=== PATIENT | male | born 1960 | race Caucasian/White ===

== ENCOUNTER → 2024-04-10 10:26 | Outpatient (REF) | payer OTHER, SELFPAY | LOC: HWRAD 10:26 | PROVIDERS: ATTENDING PHYSICIAN Family Medicine | DX: M25.561 Pain in right knee (principal) | CPT/HCPCS: 73564 ==

== ENCOUNTER → 2024-06-06 06:40 | Outpatient (REF) | payer OTHER, SELFPAY | LOC: MRI 3T 06:40 | PROVIDERS: ATTENDING PHYSICIAN Student in an Organized Health Care Education/Training Program | DX: M17.11 Unilateral primary osteoarthritis, right knee (principal); M25.561 Pain in right knee | CPT/HCPCS: 73721 ==

== ENCOUNTER 2024-10-15 06:31 | Emergency (ER) | payer OTHER, SELFPAY ==
[2024-10-15] VITALS (28 sets, daily range): BP systolic 131–180; BP diastolic 56–88; BMI 33.5
[2024-10-15 07:24] LABS: % Basophils 0.9 % (0-2); % Eosinophils 2.2 % (0-6); % Immature Granulocytes 0.7 % (0-0.5); % Lymphocytes 17.9 % (20.5-51.1); % Monocytes 11.2 % (1.7-9.3); % Neutrophils 67.1 % (42.2-75.2); Absolute Eosinophils 0.1 10^3/uL (0-0.7); Absolute Lymphocytes 0.8 10^3/uL (1.2-3.4); Absolute Monocytes 0.5 10^3/uL (0.1-0.6); Hematocrit 42.4 % (39.0-52.0); Mean Corp Hgb Conc. 35.4 g/dL (33.0-37.0); Mean Corpuscular Hgb 32.1 pg (27.0-31.0); Mean Corpuscular Volume 90.6 fL (80.0-94.0); Mean Platelet Volume 10.6 fL (7.4-10.4); Nucleated Red Blood Cells % 0 % (-); Platelet Count 116 10^3/uL (130-400); Red Blood Cell Count 4.68 10^6/uL (4.70-6.10); Red Cell Dist. Width 12.2 % (11.5-14.5); White Blood Cell Count 4.5 10^3/uL (4.8-10.8)
[2024-10-15 07:32] LABS: ALT (SGPT) 54 U/L (0-50); AST (SGOT) 69 U/L (17-59); Albumin 4.4 g/dl (3.5-5.0); Alkaline Phosphatase 56 U/L (38-126); Blood Urea Nitrogen 9 mg/dl (9-20); Calcium 8.9 mg/dl (8.4-10.2); Carbon Dioxide 27 mmol/L (22-30); Chloride 96 mmol/L (98-107); Estimated Creatinine Clearance 115 ml/min; Glucose 125 mg/dl (70-99); Potassium 4.2 mmol/L (3.5-5.1); Sodium 132 mmol/L (135-145); Total Bilirubin 1.3 mg/dl (0.2-1.3); Total Protein 7.8 g/dl (6.3-8.2); eGFR > 60.00
--- NOTE | 2024-10-15 07:39 | ED.GENMED ---
History of Present Illness
General
Chief Complaint: Heart Rate Problem
Source: patient, records and spouse
Exam Limitations: none
Time Seen by Provider: 10/15/24 06:45
Nursing documentation reviewed up to this point in time: agreed with
History of Present Illness
History of Present Illness:
Patient is a 64-year-old male who presents to the emergency department after going into atrial fibrillation around 430 this morning. Patient awoke from sleep with it. Patient was fine before bed last night. Patient is not anticoagulated. Patient
has had this previously and required cardioversion. Patient denies fever, chills, nasal congestion, sore throat or cough. Patient denies any chest pain or shortness of breath. Patient does feel palpitations. Patient denies any GI or symptoms.
Patient denies any leg pain or swelling. Patient states he has been drinking more alcohol than usual given the holidays. He believes that might have set him off.
Past History
Past History
ED Past Medical History: Arrthythmia (PAF, 14 years ago, and 03/10), Asthma, HTN, Hypercholesterolemia, Hypothyroidism, Psychiatric (Anxiety/panic disorder) and Other (gout, BPH, fatty liver with elevated LFTs)
ED Past Surgical History: Cardiac (electrical cardioversion february 2013 for PAF) and Orthopedic (peroneal tendon repair)
Social History
Tobacco: Non-smoker
Alcohol: Daily
Drug: None
Personal:
Living: with family
Employment: Employed
Family History
Family History: Hypertension
Review of Systems
Review of Systems
All Other Systems: ROS reviewed and negative except as documented in HPI and ROS
Constitutional: Reports no symptoms
EENT: Reports no symptoms
Respiratory: Reports no symptoms
Cardiac: Reports palpitations; Denies chest pain, diaphoresis or syncope
ABD/GI: Reports no symptoms
: Reports no symptoms
Musculoskeletal: Reports no symptoms
Skin: Reports no symptoms
Neurological: Reports no symptoms
Hematologic/Lymphatic: Reports no symptoms
Phy Exam
Physical Exam
Physical Exam:
Physical Exam
General: No apparent distress, alert and appropriate, well nourished, well hydrated
HENT: Normocephalic, supple with no lymphadenopathy, no thyromegaly
Eyes: Clear sclera, conjuctiva without injection
Heart: irregular irregular rhythm and normal rate. No S3, S4. No murmur. No NVD
Lungs: No respiratory distress, no stridor, lung sounds clear and equal bilaterally, chest wall symmetrical and nontender
Abdomen: Soft, nontender, no organomegaly, no CVA tenderness, BS good
Neuro: Alert and oriented x 3, CN II - XII intact, no motor focality, no cerebellar dysfunction
Skin: no rash
Psychiatric: well kept. interactive and cooperative
Extremities: No edema, cyanosis, tenderness, Good and equal peripheral pulses.
Course
Orders/Labs/Results
Orders:
Orders
10/15/24 06:32
Electrocardiogram (*1) Urgent
Reason for Study: Atrial Fibrillation
EKG- Treatment ONCE
10/15/24 07:07
Complete Blood Count/With Diff Urgent
Comprehensive Metabolic Panel Urgent
10/15/24 08:02
Propofol [Diprivan] 20 ml .ROUTE .STK-MED
10/15/24 08:50
EKG [Electrocardiogram (*1)] Urgent
Reason for Study: Other
Other Reason for Exam: post cardioversion
EKG- Treatment ONCE
Abnormal Lab Results
10/15/24
07:07
WBC 4.5 L 10^3/uL
(4.8-10.8)
RBC 4.68 L 10^6/uL
(4.70-6.10)
MCH 32.1 H pg
(27.0-31.0)
Plt Count 116 L 10^3/uL
(130-400)
MPV 10.6 H fL
(7.4-10.4)
Absolute Lymphs (auto) 0.8 L 10^3/uL
(1.2-3.4)
Immature Gran % 0.7 H %
(0-0.5)
Lymphocytes % 17.9 L %
(20.5-51.1)
Monocytes % 11.2 H %
(1.7-9.3)
Sodium 132 L mmol/L
(135-145)
Chloride 96 L mmol/L
(98-107)
Glucose 125 H mg/dl
(70-99)
AST 69 H U/L
(17-59)
ALT 54 H U/L
(0-50)
10/15/24 07:07
10/15/24 07:07
Vital Signs
Initial and Last Documented VS:
Initial Vital Signs
Temp Pulse Resp BP Pulse Ox
98.1 F 70 20 180/88 100
10/15/24 06:34 10/15/24 06:34 10/15/24 06:34 10/15/24 06:34 10/15/24 06:34
Last Documented Vital Signs
Temp Pulse Resp BP Pulse Ox
97.1 F 58 16 140/65 97
10/15/24 09:55 10/15/24 10:32 10/15/24 10:32 10/15/24 10:32 10/15/24 10:32
Procedures
Cardioversion
Indication:: Afib
Performed by:: [email or web address]
Synchronized?: Yes
Energy Used: 200 joules
Number of attempts: 1
Successful?: Yes
Complications: none
ASA Risk Score: Class II
Any reaction or bad outcome to prior sedation/anesthesia?: No history of a reaction
Sedation level to be attained: deep
Chart and allergies reviewed: Yes
Patient reassessed prior to sedation: Yes
Time out completed at (validating right patient & procedure): 08:45
History of difficult intubation: No
Airway free of obstruction: Yes
Patient has a gag reflex: Yes
Patient is able to open mouth: Yes
Patient has no dentures: Yes
Patient has no loose teeth: Yes
Medication administered by Provider during Moderate Sedation: IV Propofol (mg)
Total dose administered: 200
Time drug administered: 08:45
Start Time: 08:45
Stop Time: 08:57
*Radiology
Radiology exam reviewed: other (na)
*Pulse Oximetry
Patient hypoxic: no
*EKG
Interpreted by ED Provider?: Yes
EKG Intrepretation Date: 10/15/24
EKG Intrepretation Time: 07:42
Interpretation: abnormal
Comparison EKG: changes noted
Heart Rate: 77
Rate: normal
Rhythm: a-fib
[place]: normal axis
Interval: normal QT interval
QRS Pattern: normal QRS
Ischemia: no ischemia
*[employer] Interpretation
Rate: normal
Interpretation: abnormal
Heart Rate: 80
Rhythm: a-fib
*Critical Care Note
Total Time (30-74mins, 75-104mins- exclusive of procedures): Not Applicable
Update Note
Update Note:
Repeat EKG showed normal sinus rhythm with first-degree heart block. Discussed with the about his sleeping and I am suspicious that he does have sleep apnea. Patient will be discharged
ED Attending Note
-
Portions of this chart may have been created with voice recognition software.� Occasional wrong word or��sound alike� substitutions may have occurred due to the inherent limitations of voice recognition software.
Discharge Plan
Departure
Patient Disposition: Home (Routine Discharge)
Date of Disposition: 10/15/24
Time of Disposition: 09:10
Patient with high blood pressure during this ER visit?: Yes
Discharge Problem:
Atrial fibrillation with normal ventricular rate, Encounter for cardioversion procedure
Instructions: Atrial Fibrillation (DC), Cardioversion - Discharge instructions, MODERATE SEDATION ADULT, BLOOD PRESSURE
Prescriptions:
No Action
citalopram 10 MG tablet
20 mg PO DAILY
clonazepam 0.5 MG tablet
0.5 mg PO BID
Patient Comments:
and prn
hydrochlorothiazide 25 MG tablet
25 mg PO DAILY
nadolol 20 MG tablet
40 mg PO DAILY
aspirin [Aspir-Low] 81 MG tablet,delayed release (DR/EC)
81 mg PO DAILY
levothyroxine 25 MCG tablet
25 mcg PO SUTUTHSA
valsartan [Diovan] 320 MG tablet
320 mg PO DAILY
ergocalciferol (vitamin D2) 50,000 UNITS capsule
50,000 units PO Q7D
Referrals:
Rivka Tamayo MD [Family Provider] - Follow up in 5-7 days
Activity Restrictions/Additional Instructions:
Continue present medications and therapy. Ask your physician about an evaluation for sleep apnea. 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
Interventions
Interventions:
*Risk Screen - Suicide Last Done: 10/15/24 06:34
*General Assessment Last Done: 10/15/24 07:04
*Neglect/Abuse Screening Last Done: 10/15/24 06:34
ED- Fall Risk Assessment Last Done: 10/15/24 07:04
*ED COVID-19 Vaccine History Last Done: 10/15/24 07:04
*Nursing Disposition Last Done: 10/15/24 10:37
ED- Cardiac Assessment Last Done: 10/15/24 07:04
ED- Pulmonary Assessment Last Done: 10/15/24 07:04
Discharge Date and Time
Discharge Date/Time: 10/15/24 10:39
Print Language: MACEDONIAN
--- NOTE | 2024-10-15 08:32 | EDRN ---
Dr. Blanton currently at the pts bedside speaking with the pt and the pts
== END 2024-10-15 10:39 | disposition home or self-care (01) ==
LOC: EMR 06:31
PROVIDERS: EMERGENCY PHYSICIAN Emergency Medicine; FAMILY PHYSICIAN Internal Medicine
DX: I48.91 Unspecified atrial fibrillation (principal); E03.9 Hypothyroidism, unspecified; E78.00 Pure hypercholesterolemia, unspecified; F41.9 Anxiety disorder, unspecified; I10 Essential (primary) hypertension; I44.0 Atrioventricular block, first degree; J45.909 Unspecified asthma, uncomplicated; N40.0 Benign prostatic hyperplasia without lower urinary tract symptoms; Z82.49 Family history of ischemic heart disease and other diseases of the circulatory system
CPT/HCPCS: 99284; 92960; 80053; 85025; 93005

== ENCOUNTER → 2024-12-30 14:21 | Outpatient (REF) | payer OTHER, SELFPAY | LOC: DHSLP 14:21 | PROVIDERS: ATTENDING PHYSICIAN Internal Medicine; FAMILY PHYSICIAN Internal Medicine | DX: G47.33 Obstructive sleep apnea (adult) (pediatric) (principal) | CPT/HCPCS: 95800 ==

== ENCOUNTER → 2025-02-09 15:11 | Outpatient (REF) | payer OTHER, SELFPAY | LOC: HWRAD 15:11 | PROVIDERS: ATTENDING PHYSICIAN Internal Medicine | DX: M70.41 Prepatellar bursitis, right knee (principal) | CPT/HCPCS: 73564 ==

== ENCOUNTER 2025-05-18 22:06 | Inpatient (IN) | payer OTHER, SELFPAY ==
[2025-05-18 18:15] VITALS: BP 176/77
[2025-05-18 18:17] VITALS: BP 176/77
[2025-05-18 18:41] LABS: Hematocrit 39.2 % (39.0-52.0); Hemoglobin 14.5 g/dL (13.0-18.0); Mean Corp Hgb Conc. 37.0 g/dL (33.0-37.0); Mean Corpuscular Volume 86.7 fL (80.0-94.0); Nucleated Red Blood Cells % 0 % (-); Platelet Count 107 10^3/uL (130-400); Red Cell Dist. Width 12.7 % (11.5-14.5)
[2025-05-18 18:46] LABS: ALT (SGPT) 46 U/L (0-50); AST (SGOT) 47 U/L (17-59); Albumin 4.7 g/dl (3.5-5.0); Alkaline Phosphatase 60 U/L (38-126); Blood Urea Nitrogen 10 mg/dl (9-20); Calcium 8.7 mg/dl (8.4-10.2); Carbon Dioxide 27 mmol/L (22-30); Chloride 90 mmol/L (98-107); Glucose 125 mg/dl (70-99); Potassium 3.9 mmol/L (3.5-5.1); Sodium 124 mmol/L (135-145); Total Protein 8.5 g/dl (6.3-8.2); eGFR > 60.00
--- NOTE | 2025-05-18 20:26 | ED.GENMED ---
History of Present Illness
General
Chief Complaint: Heart Rate Problem
Source: patient
Exam Limitations: none
Time Seen by Provider: 05/18/25 20:23
History of Present Illness
History of Present Illness:
64yoM with a history of atrial fibrillation not on anticoagulation, hypertension, hyperlipidemia, AVRIL on CPAP, obesity presenting for evaluation of palpitations. Patient reports going into afib around 3pm this afternoon. He reports feeling like
his heart is fluttering. He denies any associated chest pain, shortness of breath, dizziness. Patient is requesting to be cardioverted as this is how he is typically treated. He was last seen in the ED in September 2024 for afib and was discharged
after cardioversion. Of note, patient has been experiencing diarrhea today and had 5 episode so far. He increased his fluid intake due to his diarrhea. He also was drinking more alcohol than usual this past weekend due to a wedding and a beach
trip.
Past History
Past History
ED Past Medical History: Arrthythmia (PAF, 14 years ago, and 03/10), Asthma, HTN, Hypercholesterolemia, Hypothyroidism, Psychiatric (Anxiety/panic disorder) and Other (gout, BPH, fatty liver with elevated LFTs)
ED Past Surgical History: Cardiac (electrical cardioversion february 2013 for PAF) and Orthopedic (peroneal tendon repair)
Social History
Tobacco: Non-smoker
Alcohol: Daily
Drug: None
Personal:
Living: with family
Employment: Employed
Family History
Family History: Hypertension
Phy Exam
General Physical Exam
General Presentation: well appearing and no apparent distress
General Skin: warm and dry
General Habitus: normal
General Mental: alert
ENT Exam
ENT Exam: normocephalic
Cardiovascular Exam
Cardiovascular Exam: irregularly irregular
Pulmonary Exam
Pulmonary Exam: lungs clear, no respiratory distress, no rales, no crackles, no rhonchi and no wheezing
Neurological Exam
Neurological Exam: alert
[place] Coma Scale
Eye Opening: Spontaneous
Verbal Response: Oriented
Motor Response: Obeys Commands
GCS Total Score: 15
Skin Exam
Skin Exam: normal color and warm/dry
Psychiatric Exam
Psychiatric Exam: normal mood/affect
Course
Orders/Labs/Results
Orders:
Orders
05/18/25 18:08
EKG [Electrocardiogram (*1)] Urgent
Reason for Study: Atrial Fibrillation
05/18/25 18:09
EKG- Treatment ONCE
05/18/25 18:26
CMP [Comprehensive Metabolic Panel] Urgent
Complete Blood Count/With Diff Urgent
Magnesium Urgent
Comment: ADD ON
TSH Urgent
Comment: ADD ON
05/18/25 20:26
Add On- LAB Urgent
Tests Added?: magnesium, TSH
Cardiac Monitoring- Treatment ONCE
05/18/25 20:46
Cardiac Monitoring- Treatment ONCE
Chloride, Urine [S] Urgent
Osmolality, Random Urine Urgent
Urine Sodium Urgent
0.9% Sodium Chloride 500 ml [Nss] 500 ml IV BOLUS
05/18/25 21:18
Magnesium Sulfate 2 Gram/50 ml [Magnesium Sulfate] 2 gram in 50 ml IV NOW
05/18/25 21:20
Admit/Transfer Patient As Directed
Co-Sign Provider:
Level of Care: Inpatient admission
Assign to:: Telemetry
Physician / Group: Micah
Diagnosis: Hyponatremia
Reason for Telemetry: Medication for Arrhythmia
Date to Stop Telemetry: 05/20/25
Time to Stop Telemetry: 11:00
Reason for Hospitalization: Hyponatremia
Expected length of stay greater than two midnights?: Yes
ELOS- Estimated Length of Stay in days: 2
I certify the patient meets the requirements for IP care: Yes
PRN Pain Medication Management As Directed
May give lesser potent ordered pain med per pt: Yes
preference::
Protocol:: Medication orders for pain may be administered in a
manner that supports deferring to patient preference
when the pt is:
- Requesting an ordered lesser potent pain medication.
Least to most potent pain medications are defined
as: acetaminophen < NSAID < tramadol < opioids
(morphine, oxycodone, hydromorphone).
- Requesting a lesser dose of the same medication IF
ORDERED.
- Requesting a less intrusive route of administration
if both routes are prescribed by the provider (PO <
IV).
05/18/25 21:21
Code Status As Directed
Resuscitation Status: Full Code
05/18/25 21:24
Orthostatic Vital Signs As Directed
Orthostatic VS Frequency: Now
05/18/25 21:35
0.9% Sodium Chloride 1000 ml [Nss] 1,000 ml IV BOLUS
Metoprolol [Lopressor] 25 mg PO NOW STA
05/18/25 21:44
Ondansetron Injectable [Zofran] 4 mg IV NOW STA
05/18/25 22:16
0.9% Sodium Chloride 1000 ml [Nss] 1,000 ml IV 100 mls/hr
Acetaminophen [Tylenol] 650 mg PO Q4HPRN PRN
Mag Hydrox/Al Hydrox/Simeth [Maalox] 30 ml PO Q6HPRN PRN
Ondansetron Injectable [Zofran] 4 mg IV Q6HPRN PRN
05/18/25 22:16
Activity As Directed
Activity Level: With Assistance
Orthostatic Vital Signs As Directed
Orthostatic VS Frequency: Daily
Vital Signs As Directed
Frequency: Per unit guidelines
Cpap [RESP] Routine
Patient to use own unit?: No
Set Pressure (cm H2O): 8
Pulse Ox/cont/shift [RESP] Routine
Quantity: 1
Pulse Ox/spot Check [RESP] Routine
Quantity: 1
DX Deep Vein Thrombosis Video Routine
05/18/25 23:11
BMP [Basic Metabolic Panel] Routine
05/19/25 Breakfast
Regular
At Your Request: Full Participation
Fluid Restriction: 1000 mL/day (33 oz)
Basic Metabolic Panel IN AM
Complete Blood Count/No Diff IN AM
Cortisol, Random IN AM
Magnesium IN AM
NT-proBNP IN AM
05/19/25 08:00
Aspirin Low Dose EC [Aspir Low (Enteric Coated)] 81 mg PO DAILY
Clonazepam [Klonopin] 0.5 mg PO BID
Metoprolol Xl [Toprol Xl] 100 mg PO DAILY
Valsartan [Diovan] 320 mg PO DAILY
05/19/25 18:00
Enoxaparin Sodium [Lovenox] 40 mg SC QPM
05/20/25 11:00
DC Protocol for Telemetry ONCE
Abnormal Lab Results
05/18/25
18:26
RBC 4.52 L 10^6/uL
(4.70-6.10)
MCH 32.1 H pg
(27.0-31.0)
Plt Count 107 L 10^3/uL
(130-400)
Absolute Lymphs (auto) 0.8 L 10^3/uL
(1.2-3.4)
Absolute Monos (auto) 0.9 H 10^3/uL
(0.1-0.6)
Lymphocytes % 10.8 L %
(20.5-51.1)
Monocytes % 12.7 H %
(1.7-9.3)
Sodium 124 L mmol/L
(135-145)
Chloride 90 L mmol/L
(98-107)
Glucose 125 H mg/dl
(70-99)
Magnesium 1.5 L mg/dl
(1.6-2.3)
Total Bilirubin 1.5 H mg/dl
(0.2-1.3)
Total Protein 8.5 H g/dl
(6.3-8.2)
TSH 8.93 H uIU/ml
(0.47-4.68)
05/18/25 18:26
05/18/25 18:26
Vital Signs
Initial and Last Documented VS:
Initial Vital Signs
Temp Pulse Resp BP Pulse Ox
98.2 F 81 18 176/77 97
05/18/25 18:15 05/18/25 18:15 05/18/25 18:15 05/18/25 18:15 05/18/25 18:15
Last Documented Vital Signs
Temp Pulse Resp BP Pulse Ox
98.2 F 72 22 118/64 96
05/18/25 18:17 05/19/25 00:00 05/19/25 00:00 05/19/25 00:00 05/19/25 00:00
MDM/Problems Addressed
Differential Diagnosis Includes:
64yoM here with palpitations that began this afternoon. Feels like he is back in afib. Heart rate 81 on arrival. Patient is well-appearing in no acute distress. Differential diagnosis includes but is not limited to: Atrial fibrillation,
arrhythmia, Gi abnormality, thyroid dysfunction
Workup initiated in triage. EKG confirms rate controlled atrial fibrillation without ischemic changes. Sodium is significantly low at 124 which appears new. He does report having some diarrhea earlier today. Urine studies ordered. At this
point, will defer ED cardioversion as patient is not anticoagulated and needs hospitalization for his hyponatremia. 500 cc normal saline bolus ordered and patient admitted for further management.
*Pulse Oximetry
SaO2: 97
Oxygen Mode of Delivery: Room air
Patient hypoxic: no (97%)
*EKG
Interpreted by ED Provider?: Yes
EKG Intrepretation Date: 05/18/25
Heart Rate: 77
Rate: normal
Rhythm: a-fib
[place]: normal axis
Interval: normal interval
QRS Pattern: normal QRS
Ischemia: no ischemia
*Critical Care Note
Total Time (30-74mins, 75-104mins- exclusive of procedures): Not Applicable
ED Attending Note
-
Portions of this chart may have been created with voice recognition software.� Occasional wrong word or��sound alike� substitutions may have occurred due to the inherent limitations of voice recognition software.
Discharge Plan
Departure
Patient Disposition: Admit
Date of Disposition: 05/18/25
Time of Disposition: 20:56
Presentation/result/management discussed w/ accepting MD/DO: Hospitalist
Discharge Problem:
Atrial fibrillation, Hyponatremia
Interventions
Interventions:
*Risk Screen - Suicide Last Done: 05/18/25 18:17
*General Assessment Last Done: 05/18/25 18:17
*Neglect/Abuse Screening Last Done: 05/18/25 20:41
*ED- Fall Risk Assessment Last Done: 05/18/25 20:41
*ED COVID-19 Vaccine History Last Done: 05/18/25 20:41
ED- Cardiac Assessment Last Done: 05/18/25 20:43
ED- Pulmonary Assessment Last Done: 05/18/25 20:43
[2025-05-18 20:39] VITALS: BMI 34.7
[2025-05-18] MEDS: NSS 500 IV (20:59)
[2025-05-18 21:00] LABS: Magnesium 1.5 mg/dl (1.6-2.3)
--- NOTE | 2025-05-18 21:08 | HPS.HSE ---
Family Physician
-
Family Physician: Rivka Tamayo
Chief Complaint
-
Palpitations
History of Present Illness
This is a 64-year-old with past medical history significant for atrial fibrillation status post ablation, not anticoagulated, hypothyroid, hypertension, hyperlipidemia, nonobstructive CAD, BPH, gout, AVRIL on CPAP, anxiety who presents to the
emergency department for palpitations.
Patient reported that he went into atrial fibrillation at around 3 PM in the afternoon. He felt that his heart was fluttering. He did not have any lightheadedness dizziness shortness of breath or chest pain. He denies any nausea or vomiting.
Patient reported that he was last seen with atrial fibrillation in September and had a cardioversion. Is not currently anticoagulated. Patient reports that he has been having some diarrhea today with 5 episodes of. He did report increased fluid
intake due to his diarrhea. He also states that he was drinking more water than usual and this past weekend due to a wedding ceremony. He denies any other new medication changes.
In the emergency department he was afebrile, hemodynamically stable with a blood pressure 176/77 and a pulse rate of 83. ECG shows a atrial/fib flutter with a rate of 77,.no acute ST or T wave changes. His CBC was unremarkable. His electrolytes
notable for sodium of 124 but otherwise unremarkable.
Medical History
Past Medical History
Past Medical History: Reports Arrhythmia (Paroxysmal atrial fibrillation not on anticoagulation status post ablation), Asthma, HTN, Hypercholesterolemia, Hypothyroidism, Psychiatric (Anxiety, panic episode) and Other (AVRIL on CPAP, gout, BPH, fatty
liver)
Past Surgical History: Reports Cardiac (Status post cardioversion)
Social History
Tobacco: Non-smoker
Alcohol: Occasional
Drug: None
Living: With Family
Family History
Family History: Not pertinent
Allergies / Home Medications
Allergies reflects when Allergies were last updated in [employer].
Home Medications with original date entered in [employer]
Allergy/Medication List:
Allergies
Allergy/AdvReac Type Severity Reaction Status Date / Time
[id number] Reductase Allergy causes Verified 05/18/25 18:20
Inhibitor (Hwrbwkq-Etq-Esq elevated
Reductase Inhibitor) liver
enzymes
Home Medications
citalopram 10 mg tablet 20 mg PO DAILY 09/19/10
clonazepam 0.5 mg tablet 0.5 mg PO BID 09/19/10
hydrochlorothiazide 25 mg tablet 25 mg PO DAILY 09/19/10
nadolol 20 mg tablet 40 mg PO DAILY 03/14/13
aspirin 81 mg tablet,delayed release (Aspir-Low) 81 mg PO DAILY 05/03/20
ergocalciferol (vitamin D2) 1,250 mcg (50,000 unit) capsule 50,000 units PO Q7D 05/03/20
levothyroxine 25 mcg tablet 25 mcg PO SUTUTHSA 05/03/20
valsartan 320 mg tablet (Diovan) 320 mg PO DAILY 05/03/20
Review of Systems
-
Constitutional: Reports No Symptoms
EENT: Reports No Symptoms
Respiratory: Reports No Symptoms
Cardiac: Reports Palpitations
Abdomen/GI: Reports Diarrhea
: Reports No Symptoms
Musculoskeletal: Reports No Symptoms
Skin: Reports No Symptoms
Neurological: Reports No Symptoms
Endocrine: Reports No Symptoms
Hematologic/Lymphatic: Reports No Symptoms
Psych: Reports No Symptoms
Physical Exam
Vital Signs
Vital Signs
Temp Pulse Resp BP Pulse Ox
98.2 F 88 17 176/77 98
05/18/25 18:17 05/18/25 20:30 05/18/25 20:30 05/18/25 18:17 05/18/25 20:43
Physical Exam
General: Well Developed, Well Nourished and No Apparent Distress
HEENT: NormoCephalic, Moist mucous membranes and Atraumatic
Respiratory: Clear
Cardiac: S1/S2 and Regular Rhythm; No Murmur or Rub
GI: Soft, Non Tender, Non Distended and Normal Bowel Sounds; No Organomegaly
Rectal: Deferred by Provider
Musculoskeletal: No Clubbing, No Cyanosis and No Edema
Skin: No Rash
Neuro: Nonfocal/grossly intact
Laboratory Results
-
05/18/25 18:26
05/18/25 18:
Laboratory Results
Total Bilirubin 1.5 mg/dl (0.2-1.3) H 05/18/25 18:26
AST 47 U/L (17-59) 05/18/25 18:
ALT 46 U/L (0-50) 05/18/25 18:
Alkaline Phosphatase 60 U/L (38-126) 05/18/25 18:26
Data Reviewed
-
Medical Tests (Nuc Med, Echo, EKG etc): Image Personally Visualized and interpreted
Lab Data: Labs Reviewed by me
Old Records: Reviewed
Impression/Plan
-
IMPRESSION:
61-year-old with past medical history significant for proximal atrial fibrillation status post cardioversion not anticoagulated who presents with palpitations and was found to be in atrial fibrillation but rate controlled requesting cardioversion.
Patient not cardioverted due to no anticoagulation. Patient not on any rate control. He is found to be hyponatremic to 124.
PLAN:
1. AFIB rate 77 - 95
- admit to telemetry
- cha2ds score =1 at this time, patient not ac, consider asa if CV w/u negative
- check bnp and echo
- check tsh
- continue metoprolol succinate 100 daily
2. Hyponatremia - new since last labs. na 124. Euvolemic. Taking excess free water in setting of diarrhea x 3 days. Reports he is no longer on levothyroxine.
- check tsh, random cortisol, urine Na and osm
- fluid restrict to 1000ml / day
- NS bolus 500 ml in ED, monitor and repeat na in 4 hours, continue NS 100ml/hr for now
- orthostatic vital signs
- holding hctz and citalopram
- nephrology consult
3. HTN
- continue valsartan
4. AVRIL
- continue cpap
DVT PPX - lovenox sq
Code status - Full Code
[2025-05-18] MEDS: ZOFRAN 4 MG IV (21:48)
[2025-05-18] MEDS: LOPRESSOR 25 MG PO (21:48)
[2025-05-18] MEDS: MAGNESIUM SULFATE 50 IV (21:49)
[2025-05-18] MEDS: NSS 1000 IV ×2 (21:49→22:45)
[2025-05-18 22:13] VITALS: BP 160/77
[2025-05-18 22:45] LABS: TSH 8.93 uIU/ml (0.47-4.68)
[2025-05-18 23:00] VITALS: BP 155/71
[2025-05-18 23:51] LABS: Procalcitonin 0.07 ng/ml (0.0-0.25)
[2025-05-18 23:55] LABS: Blood Urea Nitrogen 8 mg/dl (9-20); Calcium 8.5 mg/dl (8.4-10.2); Carbon Dioxide 27 mmol/L (22-30); Chloride 95 mmol/L (98-107); Estimated Creatinine Clearance > 125 ml/min; Glucose 135 mg/dl (70-99); Potassium 3.5 mmol/L (3.5-5.1); Sodium 127 mmol/L (135-145); eGFR > 60.00
[2025-05-19] VITALS (13 sets, daily range): BP systolic 118–175; BP diastolic 50–74; PULSE 69–73; BMI 34.0
--- NOTE | 2025-05-19 02:28 | DOWNTIME ---
There was a [employer] Downtime on 05/19/2025 from 0100 to 05/19/2025 at 0220. Downtime documentation of patient's care, including medication administrations, has been reconciled in the electronic record per guidelines. Refer to the
patient's paper chart under the miscellaneous tab to see printed paper medication records and downtime forms.
[2025-05-19 05:54] LABS: Hematocrit 40.3 % (39.0-52.0); Hemoglobin 14.7 g/dL (13.0-18.0); Mean Corp Hgb Conc. 36.5 g/dL (33.0-37.0); Mean Corpuscular Volume 88.4 fL (80.0-94.0); Platelet Count 110 10^3/uL (130-400); Red Cell Dist. Width 12.6 % (11.5-14.5)
[2025-05-19 06:23] LABS: Blood Urea Nitrogen 8 mg/dl (9-20); Calcium 8.7 mg/dl (8.4-10.2); Carbon Dioxide 25 mmol/L (22-30); Chloride 98 mmol/L (98-107); Estimated Creatinine Clearance > 125 ml/min; Glucose 129 mg/dl (70-99); Magnesium 2.0 mg/dl (1.6-2.3); Potassium 4.3 mmol/L (3.5-5.1); Sodium 129 mmol/L (135-145); eGFR > 60.00
[2025-05-19 06:42] LABS: Cortisol, Random 13.8 ug/dl
--- NOTE | 2025-05-19 08:02 | CON.CAR ---
Addendum entered and electronically signed by Lino Matos MD 05/19/25 15:51:
I saw and examined the patient.
The [employer]'s note was reviewed and I agree with the note.
Comment:
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 Adler), hypertension, hypercholesterolemia, mild aortic stenosis, elevated LFTs, mild nonobstructive coronary
artery disease (cardiac cath 2019), & daily EtOH presented to the emergency department the chief complaint of palpitations. Yesterday he was at a PCP office visit when he felt his pulse become irregular and told them 'I am going to be in atrial
fibrillation'. They did an ECG and he was in rate controlled atrial fibrillation. He has also had excessive diarrhea recently. He was sent to the ER. In the ER he converted to normal sinus rhythm with some IV fluids. He is currently asymptomatic
from a cardiovascular standpoint. He has persistent diarrhea.
Physical exam notable for regular rate and rhythm, trace lower extremity edema, clear lungs.
Labs notable for sodium 124, now improved to 129.
For his paroxysmal atrial fibrillation, he needs risk factor modification including alcohol cessation and weight loss. Fortunately, even when he is in atrial fibrillation he is rate controlled. He is mildly symptomatic in A-fib but it is
infrequent and I would hesitate to start antiarrhythmics given his electrolyte abnormalities, alcohol use disorder, and noncompliance. Thus we will continue his rate control strategy with metoprolol succinate 100 mg nightly. He is not on
anticoagulation due to [id number] 1 (hypertension). If his A-fib becomes more bothersome and he has more frequent paroxysms, we can consider repeat ablation. We will address this as an outpatient. Continue to trend sodium. Renal following.
Original Note:
Consultation
Consultation Request
Date/Time Consultation Requested: 05/18/2025 22:00
Date/Time Consultation Performed: 05/19/2025 08:00
Requesting Provider: Dr. Obrien
Performing Provider: ARUNA Lindsay for Dr. Matos
Reason for Consultation: Atrial fibrillation with rapid ventricular response
Medical History
-
Chief Complaint: Palpitations
History of Present Illness:
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 Adler), hypertension, hypercholesterolemia, mild aortic stenosis, elevated LFTs, mild nonobstructive coronary
artery disease (cardiac cath 2019), & daily EtOH presented to the emergency department the chief complaint of palpitations. He saw his PCP yesterday for a scheduled visit. He was in atrial fibrillation. He endorsed being anxious and jittery. He
was referred to the ER for evaluation. Over the weekend, he attended a wedding. He then developed diarrhea. No one else was ill. He was consuming excess water because he was afraid of dehydration. He did not take his metoprolol for the past 3
days due to his illness. At the time of this consultation he is feeling well. He is in sinus rhythm. He denies chest pain, shortness of breath, and dizziness.
Past Medical History
Past Medical History: Arrhythmias (Paroxysmal atrial fibrillation [no anticoagulation]), Asthma, CAD (Nonobstructive), HTN, Hypercholesterolemia and Psychiatric (Anxiety, gout)
Past Surgical History: Orthopedic
Social History
Tobacco: Former Smoker
Alcohol: Daily (6 beers per day)
Personal:
Living: With Family
Employment: Employed
Family History
Family History: CAD (Father had CAD at age 67. His sister had a large brainstem stroke at the age of 58.)
Allergies / Home Medications
Allergy/AdvReac Type Severity Reaction Status Date / Time
Bccqlyr-IPP-TyH Reductase Allergy causes Verified 05/18/25 18:20
Inhibitor (Unnskbq-Nvr-Kco elevated
Reductase Inhibitor) liver
enzymes
�Medication �Instructions �Recorded �Confirmed �Type
citalopram 10 mg tablet 20 mg PO DAILY 09/19/10 05/18/25 History
clonazepam 0.5 mg tablet 0.5 mg PO BID 09/19/10 05/18/25 History
hydrochlorothiazide 25 mg tablet 12.5 mg PO DAILY 09/19/10 05/18/25 History
valsartan 320 mg tablet (Diovan) 320 mg PO DAILY 05/03/20 05/18/25 History
metoprolol succinate 100 mg 100 mg PO DAILY 05/18/25 05/18/25 History
tablet,extended release 24 hr
Review of Systems
-
History Source: Patient
All other systems: Negative unless noted
Constitutional: Fatigue
EENT: No Symptoms
Respiratory: No Symptoms
Cardiac: No Symptoms
Abdomen/GI: No Symptoms
: No Symptoms
Musculoskeletal: No Symptoms
Skin: No Symptoms
Neurological: No Symptoms
Endocrine: No Symptoms
Hematologic/Lymphatic: No Symptoms
Physical Exam
Vital Signs
Temp Pulse Resp BP Pulse Ox
98.2 F 77 15 140/62 95
05/18/25 18:17 05/19/25 05:45 05/19/25 05:45 05/19/25 04:00 05/19/25 05:45
Lab Results
05/19/25 05:29
05/19/25 05:29
Gmk-O-Uatcwaegvju Pept 2890 pg/ml 05/19/25 05:29
Physical Exam
General: Well Developed, Well Nourished, No Apparent Distress and Comfortable
HEENT: Normocephalic, Anicteric and Moist Mucous Membranes
Respiratory: Clear and Non Labored Respirations
Cardiac: S1/S2, Regular Rhythm and Murmur (II/ BRAEDEN)
Breast: Deferred by me
GI: Soft, Non Tender, Non Distended and Normal Bowel Sounds
Rectal: Deferred by Provider
Genito-urinary: No Costovertebral Tender
Musculoskeletal: No Clubbing, No Cyanosis and No Edema
Skin: Warm and Dry
Neuro: AO x 3
Hematologic/Lymphatic: No Lymphadenopathy
Psych: Calm
Impression / Plan
-
I/P: 64M with paroxysmal atrial fibrillation (PVI 2016, Dr. Adler), hypertension, hypercholesterolemia, mild aortic stenosis, elevated LFTs, mild nonobstructive coronary artery disease (cardiac cath 2019), presented to the emergency department the
chief complaint of palpitations.
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 Us
EP: Dr. Adler
Paroxysmal atrial fibrillation
- Rate controlled, the plan is rhythm control
- PVI [address] Adler
- We discussed both antiarrhythmic therapy and ablation. He i snot sure he wants another ablation. EKG to assess QTc.
- Oral Anticoagulation: None
- [id number]: score at least 1 (HTN), consider 2 with nonobstructive CAD
- TSH 8.93, T4 added, pending
Systolic murmur
- Echocardiogram today
Hyponatremia
- He endorses excess free water in the setting of diarrhea, now restricted
- Nephrology consulted by primary service
Essential hypertension
Hypercholesterolemia
- He declined statin due to elevated LFTs in the past, this was in the setting of fatty liver disease
- Goal LDL less than 70 with nonobstructive coronary disease
Daily EtOH consumption
- 6 light beers every day
Nonobstructive CAD, if he continues decline oral anticoagulation, consider aspirin
Fasting hyperglycemia, HgbA1c pending
Former smoker, continue cessation recommended
AVRIL, continue CPAP, he endorses adherence
Obesity, BMI 34, he would benefit from weight loss
Data Reviewed
-
EKG: Report Reviewed by me (Atrial fibrillation, rate 77)
Medical Tests (Nuc Med, Echo etc): Report Reviewed by me
Labs: Labs Reviewed by me
Old Records: Reviewed
[2025-05-19] MEDS: ASPIR LOW (ENTERIC COATED) 81 MG PO (08:38)
[2025-05-19] MEDS: TOPROL XL 100 MG PO (08:38)
[2025-05-19] MEDS: KLONOPIN 0.5 MG PO ×2 (08:38→20:28)
[2025-05-19] MEDS: DIOVAN 320 MG PO (08:39)
--- NOTE | 2025-05-19 09:40 | W.PN.HOSP.TC ---
Today's Communication/Plan
-
See plan
Assessment / Plan
Assessment / Plan
Impression
64-year-old with past medical history significant for proximal atrial fibrillation status post cardioversion not anticoagulated who presents with palpitations and was found to be in atrial fibrillation but rate controlled requesting cardioversion.
Patient not cardioverted due to no anticoagulation. Patient not on any rate control. He is found to be hyponatremic to 124.
Paroxysmal symptomatic A-fib
Elevated pro CHF BNP
Hyponatremia
Untreated hypothyroidism
Other conditions
Essential hypertension
Obstructive sleep apnea on nightly BiPAP
Plan
Paroxysmal symptomatic A-fib.
Currently rate controlled.
Reported recent cardioversion October 21
Compliant with metoprolol
Possibly triggered by metabolic abnormalities/hyponatremia
Noted elevated pro CHF BNP possibly triggered with rapid heart rates
Continue telemetry
Update echo
Cardiology evaluation
Anticoagulation: cha2ds score =1 (hypertension) pending echo
Essential hypertension
Continue metoprolol and valsartan. Hold HCTZ
Hyponatremia.
Exam euvolemic.
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 Recently discontinued levothyroxine.
Reports high water intake with attempt to compensate for loose stools over the last 2 days
Urine osm 289, urine sodium 56
Urine sodium improving 124�129 while on LR.
Noted with elevated TSH
Hold further IV hydration
Hold HCTZ
Start levothyroxine
Follow-up BMP
Continue citalopram with caution
Nephrology evaluation
Obstructive sleep apnea
Continue BiPAP at night
Anxiety
Continue citalopram and clonazepam t
Anticipated Discharge: > 48 hours
Subjective/Interval History
-
Date of Service: May 19, 2025
Objective Data
-
Labs:
Laboratory Results
05/18/25 05/19/25
23:11 05:29
WBC 6.3
Hgb 14.7
Hct 40.3
Plt Count 110 L
Sodium 127 L 129 L
Potassium 3.5 4.3
Chloride 95 L 98
Carbon Dioxide 27 25
BUN 8 L 8 L
Creatinine 0.7 0.7
Glucose 135 H 129 H
Calcium 8.5 8.7
Vital Signs:
Vital Signs
Temp Pulse Resp BP Pulse Ox
98.3 F 71 16 141/57 97
05/19/25 07:00 05/19/25 08:39 05/19/25 07:00 05/19/25 08:39 05/19/25 07:00
I&O
05/18/25 05/19/25 05/20/25
06:59 06:59 06:59
Intake Total 800 / 800 240 / 240
Balance 800 / 800 240 / 240
Physical Exam
-
General: Well Developed and No Apparent Distress
HEENT: Normocephalic, Atraumatic and Moist Mucous Membranes
Respiratory: Clear to Auscultation
Cardiac: Regular Rhythm and S1/S2; Negative Murmur, Rub or Gallop
GI: Soft, Nontender, Nondistended and Normal Bowel Sounds; Negative Organomegaly
Rectal: Deferred by Provider
Musculoskeletal: No Clubbing, No Cyanosis and No Edema
Skin: Negative Rash
Neuro: Nonfocal/Grossly Intact
[2025-05-19 10:03] LABS: Glycohemoglobin (HgbA1c) 5.5 % (4.0-5.6)
[2025-05-19] MEDS: SYNTHROID 125 MCG PO (10:30)
--- NOTE | 2025-05-19 10:58 | CM ---
CM met with pt and spouse bedside
Pt and spouse reside in a 2[address] with 2 KAY[place], full flight to 2nd floor
Pt is indep with his ADls, denies use of ADs
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
Pt has a cpap and spouse will be bringing it to the hospital
Denies financial insecuritie
PCP- Rivka Tamayo
Rx- Eligio
Discharge Disposition- anticipate home no needs
--- NOTE | 2025-05-19 11:19 | W.CON.NEPH ---
Consultation
-
Date/Time Consultation Requested: May 18, 2025 11 PM
Date/Time Consultation Performed: May 19, 2025 10 AM
Requesting Provider: Dr. Oneal
Performing Provider: Dr. Pulliam
Reason for Consultation: Hyponatremia
Medical History
-
Chief Complaint: Hyponatremia
History of Present Illness:
64-year-old with past medical history significant for atrial fibrillation status post ablation, not anticoagulated, hypothyroid, hypertension, hyperlipidemia, nonobstructive CAD, BPH, gout, AVRIL on CPAP, anxiety who presents to the emergency
department for palpitations.
Found to have a serum sodium of 124
Has been having diarrhea and increased his water intake significantly unable to quantify but easily over 100 ounces of water. He also drinks 6-8 beers per day he went to a wedding this weekend and was drinking heavily and then went to the beach for
the remainder of the weekend continue to drink beer.
Patient was seen in the ER along with his who was present help provide history.
Renal consult for hyponatremia
Past Medical History
Atrial fibrillation status post ablation, not anticoagulated, hypothyroid, hypertension, hyperlipidemia, nonobstructive CAD, BPH, gout, AVRIL on CPAP,
Social History
Tobacco: Non-Smoker
Alcohol: Daily
Family History
Family History: Not Pertinent
Allergies / Home Medications
Allergy/AdvReac Type Severity Reaction Status Date / Time
Jzyjbwb-WUQ-ZsM Reductase Allergy causes Verified 05/18/25 18:20
Inhibitor (Xmnpgoa-Ovz-Ila elevated
Reductase Inhibitor) liver
enzymes
�Medication �Instructions �Recorded �Confirmed �Type
citalopram 10 mg tablet 20 mg PO HS 09/19/10 05/19/25 History
clonazepam 0.5 mg tablet 0.5 mg PO HS 09/19/10 05/19/25 History
hydrochlorothiazide 25 mg tablet 12.5 mg PO HS 09/19/10 05/19/25 History
valsartan 320 mg tablet (Diovan) 320 mg PO HS 05/03/20 05/19/25 History
metoprolol succinate 100 mg 100 mg PO HS 05/18/25 05/19/25 History
tablet,extended release 24 hr
clonazepam 0.5 mg tablet 0.5 mg PO DAILYPRN PRN anixety 05/19/25 05/19/25 History
Review of Systems
-
Diarrhea palpitations
All other systems: Negative unless noted
Physical Exam
Vital Signs
Vital Signs
Temp Pulse Resp BP Pulse Ox
98.3 F 71 16 141/57 97
05/19/25 07:00 05/19/25 08:39 05/19/25 07:00 05/19/25 08:39 05/19/25 07:00
Lab Results
WBC 6.3 10^3/uL (4.8-10.8) 05/19/25 05:29
RBC 4.56 10^6/uL (4.70-6.10) L 05/19/25 05:29
Hgb 14.7 g/dL (13.0-18.0) 05/19/25 05:29
Hct 40.3 % (39.0-52.0) 05/19/25 05:29
Plt Count 110 10^3/uL (130-400) L 05/19/25 05:29
Sodium 129 mmol/L (135-145) L 05/19/25 05:29
Potassium 4.3 mmol/L (3.5-5.1) 05/19/25 05:29
Chloride 98 mmol/L (98-107) 05/19/25 05:29
Carbon Dioxide 25 mmol/L (22-30) 05/19/25 05:29
BUN 8 mg/dl (9-20) L 05/19/25 05:29
Creatinine 0.7 mg/dL (0.7-1.3) 05/19/25 05:29
eGFR > 60.00 05/19/25 05:29
Glucose 129 mg/dl (70-99) H 05/19/25 05:29
Calcium 8.7 mg/dl (8.4-10.2) 05/19/25 05:29
Qea-R-Xagizaxiyzv Pept 2890 pg/ml 05/19/25 05:29
Albumin 4.7 g/dl (3.5-5.0) 05/18/25 18:26
Physical Exam
General no acute distress
HEENT no cephalic atraumatic extraocular muscle intact no scleral icterus no JVD neck supple
lungs clear to auscultation bilateral
heart regular S1-S2 positive with ectopy
abdomen soft nontender positive bowel sounds
extremities no edema pulses present bilateral
Neurologically nonfocal alert and oriented x 3
Skin no lesions no abrasions no petechiae
Psych normal affect no bizarre behavior
Data Reviewed
-
Labs: Labs Reviewed by me, Discussed with Physician, Discussed with Patient and Discussed with Family
Assessment/Plan
-
64-year-old with past medical history significant for atrial fibrillation status post ablation, not anticoagulated, hypothyroid, hypertension, hyperlipidemia, nonobstructive CAD, BPH, gout, AVRIL on CPAP, anxiety who presents to the emergency
department for palpitations.
Found to have a serum sodium of 124
Has been having diarrhea and increased his water intake significantly unable to quantify but easily over 100 ounces of water. He also drinks 6-8 beers per day he went to a wedding this weekend and was drinking heavily and then went to the beach for
the remainder of the weekend continue to drink beer.
Renal consult for hyponatremia
Impression.
Hyponatremia secondary to excessive water intake and alcohol use decreased solute with a low urine
Atrial fibrillation chronic
EtOH history 8 beers daily
Hypertension on hydrochlorothiazide
History of hypothyroidism recently discontinued the medication by physician= elevated TSH with a normal T4
Plan.
Fluid restrict
Discontinue hydrochlorothiazide indefinitely with his history of excessive alcohol use and at risk for recurrent hyponatremia
Discontinue IV fluid
EtOH withdrawal prophylaxis
Repeat basic metabolic panel this afternoon
[2025-05-19 14:29] LABS: Blood Urea Nitrogen 8 mg/dl (9-20); Calcium 8.7 mg/dl (8.4-10.2); Carbon Dioxide 26 mmol/L (22-30); Chloride 99 mmol/L (98-107); Estimated Creatinine Clearance 117 ml/min; Glucose 124 mg/dl (70-99); Sodium 129 mmol/L (135-145); eGFR > 60.00
[2025-05-19] MEDS: LOVENOX 40 MG SC (17:28)
[2025-05-20] MEDS: SYNTHROID 125 MCG PO (05:46)
[2025-05-20 07:22] VITALS: BP 156/68; BP 165/76; BP 169/81; PULSE 60; PULSE 61; PULSE 63
[2025-05-20 08:44] LABS: Blood Urea Nitrogen 8 mg/dl (9-20); Calcium 8.5 mg/dl (8.4-10.2); Carbon Dioxide 27 mmol/L (22-30); Chloride 101 mmol/L (98-107); Estimated Creatinine Clearance 103 ml/min; Glucose 113 mg/dl (70-99); Potassium 4.2 mmol/L (3.5-5.1); Sodium 132 mmol/L (135-145); eGFR > 60.00
[2025-05-20] MEDS: DIOVAN 320 MG PO (09:33)
[2025-05-20] MEDS: ASPIR LOW (ENTERIC COATED) 81 MG PO (09:34)
[2025-05-20] MEDS: TOPROL XL 100 MG PO (09:34)
[2025-05-20] MEDS: KLONOPIN 0.5 MG PO (09:34)
--- NOTE | 2025-05-20 10:02 | W.PN.CD ---
Today's Communication / Plan
-
Cardiology will sign off
F/u with Dr. Us placed in chart
Over 55 min spent with pt reviewing his AFib, results of repeat PVI (he is a good candidate), and the importance of AFib risk factor modification
Impression / Plan
-
I/P: 64M with paroxysmal atrial fibrillation (PVI 2016, Dr. Adler), hypertension, hypercholesterolemia, mild aortic stenosis, elevated LFTs, mild nonobstructive coronary artery disease (cardiac cath 2019), presented to the emergency department the
chief complaint of palpitations.
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 Us
EP: Dr. Adler
Paroxysmal atrial fibrillation
- I reviewed AFIb risk factor modification: BMI at least <27, exercise of 150 min per week, ETOH (no more then 2 drinks per week), BP and sleep apnea control
- Rate was fine in AFib but still had Sx. In Sinus now.
- PVI 2017
- We discussed both antiarrhythmic therapy and ablation. He i snot sure he wants another ablation. EKG QTc is a bit too long to use sotalol/dofetilide.
- Oral Anticoagulation: None
- [id number]-HMVn: score at least 1 (HTN), consider 2 with nonobstructive CAD
- TSH 8.93, T4 nornal
Moderate aortic stenosis explains his systolic murmur
Hyponatremia, per medicine and nephrology. Now off HCTZ
Essential hypertension
Hypercholesterolemia
- He declined statin due to elevated LFTs in the past, this was in the setting of fatty liver disease
- Goal LDL less than 70 with nonobstructive coronary disease
Daily EtOH consumption
- 6 light beers every day
Nonobstructive CAD, if he continues decline oral anticoagulation, consider aspirin
Fasting hyperglycemia, HgbA1c pending
Former smoker, continue cessation recommended
AVRIL, continue CPAP, he endorses adherence
Obesity, BMI 34, he would benefit from weight loss
Subjective: No CP/palps
Physical Exam
Vital Signs/Labs
Vital Signs
Temp Pulse Resp BP Pulse Ox
98.3 F 63 20 156/68 97
05/20/25 07:22 05/20/25 09:34 05/20/25 07:22 05/20/25 09:34 05/20/25 07:22
05/19/25 05/20/25 05/21/25
06:59 06:59 06:59
Actual Weight 109.769 kg 107.558 kg
05/19/25 05:29
05/20/25 07:05
Magnesium 2.0 mg/dl (1.6-2.3) 05/19/25 05:29
TSH 8.93 uIU/ml (0.47-4.68) H 05/18/25 18:26
Free T4 1.26 ng/dl (0.78-2.19) 05/19/25 05:29
05/19/25
05:29
Icl-R-Yuzmjkmenoy Pept 2890
Physical Exam
Constitutional: No acute distress
EENT: Anicteric
Cardiovascular: Rhythm & rate is regular, Pedal edema is absent, Systolic murmur present and S1S2 is normal
Respiratory: Respiratory effort normal and Lungs clear to auscul.
GI: Soft and Distention absent
Neuro/Psych: AO x 3
Data Reviewed
-
Date of Service: May 20, 2025
[2025-05-20 11:23] VITALS: BP 158/72
--- NOTE | 2025-05-20 13:26 | CM ---
Home when stable, no needs.
Plan; Home when stable, no needs.
--- NOTE | 2025-05-20 14:43 | W.PN.NEPH.PH ---
Today's Communication / Plan
-
Stable for discharge from nephrology standpoint
Will need 52 ounce fluid restriction at discharge and maintain off hydrochlorothiazide with follow-up BMP to PCP later this week
Assessment/Plan
-
64-year-old with past medical history significant for atrial fibrillation status post ablation, not anticoagulated, hypothyroid, hypertension, hyperlipidemia, nonobstructive CAD, BPH, gout, AVRIL on CPAP, anxiety who presents to the emergency
department for palpitations.
Found to have a serum sodium of 124
Has been having diarrhea and increased his water intake significantly unable to quantify but easily over 100 ounces of water. He also drinks 6-8 beers per day he went to a wedding this weekend and was drinking heavily and then went to the beach for
the remainder of the weekend continue to drink beer.
Renal consult for hyponatremia
Impression.
Hyponatremia secondary to excessive water intake and alcohol use decreased solute with a low urine
Atrial fibrillation chronic
EtOH history 8 beers daily
Hypertension on hydrochlorothiazide
History of hypothyroidism recently discontinued the medication by physician= elevated TSH with a normal T4
Plan.
Serum sodium level up to 132
Fluid restrict at discharge ~50oz
Discontinue hydrochlorothiazide indefinitely with his history of excessive alcohol use and at risk for recurrent hyponatremia
EtOH withdrawal prophylaxis
Stable for discharge from nephrology standpoint with follow-up BMP at the end of the week sent to PCP
-
-
Date of Service: May 20, 2025
CC / HPI / ROS
-
Chief Complaint:
Hyponatremia
History of Present Illness:
Serum sodium up to 132 with fluid restriction
Hemodynamically stable
Review of Systems:
Subjectively nonoliguric
No chest pain or shortness of breath
Labs
-
Labs:
WBC 6.3 10^3/uL (4.8-10.8) 05/19/25 05:29
RBC 4.56 10^6/uL (4.70-6.10) L 05/19/25 05:29
Hgb 14.7 g/dL (13.0-18.0) 05/19/25 05:29
Hct 40.3 % (39.0-52.0) 05/19/25 05:29
Plt Count 110 10^3/uL (130-400) L 05/19/25 05:29
Sodium 132 mmol/L (135-145) L 05/20/25 07:05
Potassium 4.2 mmol/L (3.5-5.1) 05/20/25 07:05
Chloride 101 mmol/L (98-107) 05/20/25 07:05
Carbon Dioxide 27 mmol/L (22-30) 05/20/25 07:05
BUN 8 mg/dl (9-20) L 05/20/25 07:05
Creatinine 0.9 mg/dL (0.7-1.3) 05/20/25 07:05
eGFR > 60.00 05/20/25 07:05
Glucose 113 mg/dl (70-99) H 05/20/25 07:05
Calcium 8.5 mg/dl (8.4-10.2) 05/20/25 07:05
Fxg-G-Hbscwrukouv Pept 2890 pg/ml 05/19/25 05:29
Albumin 4.7 g/dl (3.5-5.0) 05/18/25 18:26
Physical Exam
-
Vital Signs:
Vital Signs
Temp Pulse Resp BP Pulse Ox
98.5 F 66 18 158/72 98
05/20/25 11:23 05/20/25 11:23 05/20/25 11:23 05/20/25 11:23 05/20/25 11:23
Cardiovascular:: Regular rate and rhythm
Respiratory:: Bilateral: CTA
Lung Excursion:: Normal
Abdomen:: Nontender and Soft
Bowel Sounds:: Normal
Extremity Edema:: None: Bilateral:
Easley Catheter: No
[2025-05-20 15:00] VITALS: BP 174/67
--- NOTE | 2025-05-20 15:02 | W.DS.TRANS ---
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
-
Discharge Instructions:
Discharge Diagnosis/Procedures Paroxysmal symptomatic A-fib
Hyponatremia
Untreated hypothyroidism
Diet Regular
Additional Diets Fluid restriction to 50 oz
Blood Work BMP in am
Instructions:
Stand-Alone Forms:
Changes to Home Medications: Yes
Discharge Medications:
DC Medications w/original date entered in [employer]
citalopram 10 mg tablet 20 mg PO HS 09/19/10
clonazepam 0.5 mg tablet 0.5 mg PO HS 09/19/10
valsartan 320 mg tablet (Diovan) 320 mg PO HS 05/03/20
metoprolol succinate 100 mg tablet,extended release 24 hr 100 mg PO HS 05/18/25
clonazepam 0.5 mg tablet 0.5 mg PO DAILYPRN PRN anixety 05/19/25
levothyroxine 125 mcg tablet 125 mcg PO DAILY @ 0600 #30 tabs 05/20/25
Home Medication Changes
HCTZ stopped
Synthroid initiated
Pending Results: No
[2025-05-21 01:50] LABS: 24 Hour Urine Total Volume Random mL; Chloride, Urine 44 mmol/L; Creatinine, Urine per Volume 80 mg/dL; Urine Collection Length Random hr
== END 2025-05-20 16:56 | disposition home or self-care (01) | DRG 641 ==
LOC: 4 WEST ACU 22:06
PROVIDERS: Emergency Medicine; Physician Assistant; ADMITTING PHYSICIAN Internal Medicine; ATTENDING PHYSICIAN Internal Medicine; CONSULT PHYSICIAN Internal Medicine Nephrology; EMERGENCY PHYSICIAN Emergency Medicine; FAMILY PHYSICIAN Internal Medicine; OTHER PHYSICIAN Student in an Organized Health Care Education/Training Program
DX: E87.1 Hypo-osmolality and hyponatremia (principal); I48.0 Paroxysmal atrial fibrillation; I50.9 Heart failure, unspecified; I11.0 Hypertensive heart disease with heart failure; G47.33 Obstructive sleep apnea (adult) (pediatric); F10.10 Alcohol abuse, uncomplicated; F32.A Depression, unspecified; F41.9 Anxiety disorder, unspecified; E03.8 Other specified hypothyroidism; I25.10 Atherosclerotic heart disease of native coronary artery without angina pectoris; N40.0 Benign prostatic hyperplasia without lower urinary tract symptoms; J45.909 Unspecified asthma, uncomplicated; E78.00 Pure hypercholesterolemia, unspecified; K76.0 Fatty (change of) liver, not elsewhere classified; Z87.891 Personal history of nicotine dependence; Z79.82 Long term (current) use of aspirin; Z79.890 Hormone replacement therapy; E66.9 Obesity, unspecified; Z68.34 Body mass index [BMI] 34.0-34.9, adult; Z79.899 Other long term (current) drug therapy; Z82.3 Family history of stroke; Z82.49 Family history of ischemic heart disease and other diseases of the circulatory system; Z91.199 Patient's noncompliance with other medical treatment and regimen due to unspecified reason
CPT/HCPCS: 80048; 80053; 82436; 82533; 83036; 83735; 83880; 83935; 84145; 84300; 84439; 84443; 85025; 85027; 87045; 87046; 87070; 87324; 87427; 87449; 89055; 93005; 93306; 94660